=== PATIENT | male | born 1960 | race Caucasian/White ===

== ENCOUNTER → 2023-07-16 | Emergency (ER) | payer OTHER ==
[~2023-07-16] MED LIST: ASPIRIN 81 MG CHEWABLE TABLET ONE; AZITHROMYCIN 500 MG INJ IVPB ONE; CEFTRIAXONE 2000 MG/VIAL ONE; FAMOTIDINE 20 MG/2 ML VIAL IV ONE; FUROSEMIDE 40 MG/4 ML VIAL ONE; IPRATROPIUM BROM 0.5MG/2.5ML ONE; LEVALBUTEROL 1.25 MG/3 ML NEB ONE; NA CHLORIDE 0.9% 250 ML ONE; NIRMATRELVIR/RITONAVIR TABLET PO ONE; ONDANSETRON 4 MG/2 ML VIAL ONE
[2023-07-16 14:17] LABS: Absolute Lymphocytes (CBC) 1.1 K/uL (0.7-4.9); Hematocrit 39.5 % (39.6-49.0); Lymphocytes % 8.2 % (15.3-44.8); MPV 7.3 fL (7.6-11.3); Platelets 268 thou/uL (152-406); RBC Red Blood Cell Count 4.94 M/uL (4.33-5.43)
[2023-07-16 14:32] LABS: SARS-CoV-2 Antigen Rapid Res Positive (Negative)
[2023-07-16 14:39] LABS: Bilirubin Direct 0.3 mg/dL (0-0.2); Bilirubin Indirect, Calculated 0.6 mg/dL (0.2-0.8); Bilirubin Total 0.9 mg/dL (0.2-1.0); Magnesium 1.8 mg/dL (1.6-2.4); Potassium 3.2 mEq/L (3.5-5.1); Protein, Total 7.2 g/dL (6.4-8.2); Protime INR 1.4; Troponin High Sensitivity 46.5 pg/mL (<58.9)
--- NOTE | 2023-07-16 14:56 | EKG ---
Test Date: 2023-07-16 Test Time: 13:50:50 Cereal Maker: ALP MEASUREMENT RESULTS: Intervals: Rate: 86 TN: 174 QRSD: 92 QT: 386 QTc: 461 [place]: P: 54 TN: 174 QRS: 101 T: -5 INTERPRETIVE STATEMENTS: Normal sinus rhythm Possible Left atrial enlargement Rightward axis Inferior infarct, age undetermined ST & T wave abnormality, consider anterior ischemia Abnormal ECG No previous ECG available for comparison Electronically Signed On 07-16-23 14:56:16 TRAVEL ADMINISTRATOR by Steve Tinoco
--- NOTE | 2023-07-16 15:03 | EDPHYS ---
Physician Documentation [facility] Name: William Sneed Age: 63 yrs Sex: Male : 1960 Arrival Date: 07/16/2023 Time: 13:25 Bed 13 Private MD: ED Physician Dong Pfeiffer HPI: 07/16 14:56 This 63 yrs old Male presents to ER via Wheelchair with complaints of bel Breathing Difficulty. 14:56 The patient has shortness of breath at rest, with light activity. Onset: The bel symptoms/episode began/occurred 3 day(s) ago. Duration: The symptoms are continuous, and are steadily getting worse. The patient's shortness of breath is aggravated by coughing, is alleviated by rest, sitting up, application of supplemental oxygen. Associated signs and symptoms: Pertinent positives: non-productive cough. Severity of symptoms: At their worst the symptoms were in the emergency department the symptoms have improved moderately. The patient has experienced similar episodes in the past, multiple times. Historical: - Allergies: 13:35 Levaquin; ko1 - Home Meds: 13:35 Unable to obtain [Active]; ko1 - PMHx: 13:35 Diabetes mellitus; Hypertensive disorder; pulmonary fibrosis; ko1 - Immunization history:: Adult Immunizations up to date. - Social history:: Smoking status: Patient denies any tobacco usage or history of. ROS: 14:58 Constitutional: Negative for fever, chills, and weight loss, Eyes: Negative for injury, bel pain, redness, and discharge, ENT: Negative for injury, pain, and discharge, Neck: Negative for injury, pain, and swelling, Cardiovascular: Negative for chest pain, palpitations, and edema, Abdomen/GI: Negative for abdominal pain, nausea, vomiting, diarrhea, and constipation, Back: Negative for injury and pain, : Negative for injury, bleeding, discharge, and swelling, MS/Extremity: Negative for injury and deformity, Skin: Negative for injury, rash, and discoloration, Neuro: Negative for headache, weakness, numbness, tingling, and seizure, Psych: Negative for depression, anxiety, suicide ideation, homicidal ideation, and hallucinations, Allergy/Immunology: Negative for hives, rash, and allergies, Endocrine: Negative for neck swelling, polydipsia, polyuria, polyphagia, and marked weight changes, Hematologic/Lymphatic: Negative for swollen nodes, abnormal bleeding, and unusual bruising, 14:58 Respiratory: Positive for cough, "sounds productive", dyspnea on exertion, orthopnea, shortness of breath, at rest. 14:58 MS/extremity: Negative for acute changes, Exam: 14:58 Constitutional: This is a well developed, well nourished patient who is awake, alert, bel and in no acute distress. Head/Face: Normocephalic, atraumatic. Eyes: Pupils equal round and reactive to light, extra-ocular motions intact. Lids and lashes normal. Conjunctiva and sclera are non-icteric and not injected. Cornea within normal limits. Periorbital areas with no swelling, redness, or edema. ENT: Nares patent. No nasal discharge, no septal abnormalities noted. Tympanic membranes are normal and external auditory canals are clear. Oropharynx with no redness, swelling, or masses, exudates, or evidence of obstruction, uvula midline. Mucous membranes moist. Neck: Trachea midline, no thyromegaly or masses palpated, and no cervical lymphadenopathy. Supple, full range of motion without nuchal rigidity, or vertebral point tenderness. No Meningismus. Chest/axilla: Normal chest wall appearance and motion. Nontender with no deformity. No lesions are appreciated. Cardiovascular: Regular rate and rhythm with a normal S1 and S2. No gallops, murmurs, or rubs. Normal PMI, no JVD. No pulse deficits. Abdomen/GI: Soft, non-tender, with normal bowel sounds. No distension or tympany. No guarding or rebound. No evidence of tenderness throughout. Back: No spinal tenderness. No costovertebral tenderness. Full range of motion. Male : Normal genitalia with no discharge or lesions. Skin: Warm, dry with normal turgor. Normal color with no rashes, no lesions, and no evidence of cellulitis. MS/ Extremity: Pulses equal, no cyanosis. Neurovascular intact. Full, normal range of motion. Neuro: Awake and alert, GCS 15, oriented to person, place, time, and situation. Cranial nerves II-XII grossly intact. Motor strength 5/5 in all extremities. Sensory grossly intact. Cerebellar exam normal. Normal gait. Psych: Awake, alert, with orientation to person, place and time. Behavior, mood, and affect are within normal limits. 14:58 ECG was reviewed by the Attending Physician. 14:58 Respiratory: mild respiratory distress is noted, Respirations: labored breathing, that is mild, Breath sounds: bronchial sounds, that are mild, are scattered, decreased breath sounds, that are mild, are located in both bases, rhonchi, that are mild, are scattered, Respiratory rate: 18 14:58 Musculoskeletal/extremity: DVT Exam: No signs of deep vein thrombosis. no pain, no swelling, no tenderness, negative Homans' sign noted on exam, no appreciated bluish discoloration, no erythema, no increased warmth, Vital Signs: 13:33 BP 126 / 72; Pulse 92; Resp 18; Temp 97.8; Pulse Ox 88% on 4 lpm NC; ko1 15:30 BP 170 / 99; Pulse 94; Resp 26; Pulse Ox 97% on Non-rebreather mask; ap3 15:52 BP 145 / 92; Pulse 91; Resp 18; Pulse Ox 93% on 4 lpm NC; ap3 16:31 BP 153 / 76; Pulse 100; Resp 96; Pulse Ox 96% on 4 lpm NC; ap3 17:56 BP 129 / 78; Pulse 96; Resp 21 S; Pulse Ox 94% on 4 lpm NC; as6 MDM: 13:34 Patient medically screened. bel 15:00 Differential diagnosis: Anemia Anxiety Reaction asthma, Bronchitis CHF exacerbation, bel Chronic Obstructive Pulmonary Disease pulmonary edema, Pulmonary Embolism reactive airway disease, Sepsis Unstable Angina. Antibiotic administration: Rocephin and Zithromax given. Differential Diagnosis sepsis, flu. Immunization status: Influenza vaccine: within last 5 years. Data reviewed: vital signs, nurses notes, lab test result(s), EKG, radiologic studies, CT scan, plain films. Consideration of Admission/Observation Patient was admitted/placed on observation. Escalation of care including admission/observation considered. I considered the following discharge prescriptions or medication management in the emergency department Medications were administered in the Emergency Department. See MAR. Independent interpretation of the following test(s) in the Emergency Department EKG: See my EKG interpretation above. Historians other than the Patient: Spouse/Significant Other: well informed. Care significantly affected by the following chronic conditions: Diabetes, Hypertension, pulmonary fibrosis. Counseling: I had a detailed discussion with the patient and/or guardian regarding the historical points, exam findings, and any diagnostic results supporting the discharge/admit diagnosis, lab results, radiology results, the need to transfer to another facility, for higher level of care, [facility] does not immediately have the required specialist. 07/16 13:37 Order name: Basic Metabolic Panel; Complete Time: 14:46 07/16 13:37 Order name: CBC with Diff; Complete Time: 14:47 07/16 13:37 Order name: LFT's; Complete Time: 14:47 07/16 13:37 Order name: Magnesium; Complete Time: 14:47 07/16 13:37 Order name: NT PRO-BNP; Complete Time: 14:47 07/16 13:37 Order name: PT-INR; Complete Time: 14:47 07/16 13:37 Order name: Troponin HS; Complete Time: 14:47 07/16 13:37 Order name: Lipase; Complete Time: 14:47 07/16 13:37 Order name: Urinalysis w/ reflexes; Complete Time: 15:41 07/16 13:37 Order name: ABG; Complete Time: 15:03 07/16 13:37 Order name: SARS RAPID; Complete Time: 14:47 07/16 13:37 Order name: Flu; Complete Time: 14:47 07/16 13:37 Order name: Blood Culture Adult (2) 07/16 13:37 Order name: Lactate w/ 2H reflex if indic.; Complete Time: 14:47 07/16 13:37 Order name: XRAY Chest (1 view) 07/16 14:52 Order name: CT Chest For PE Angio 07/16 13:37 Order name: EKG; Complete Time: 13:38 07/16 13:37 Order name: Cardiac monitoring; Complete Time: 14:09 07/16 13:37 Order name: EKG - Nurse/Tech; Complete Time: 13:55 07/16 13:37 Order name: IV Saline Lock; Complete Time: 14:09 07/16 13:37 Order name: Labs collected and sent; Complete Time: 14:09 07/16 13:37 Order name: O2 Per Protocol; Complete Time: 13:55 07/16 13:37 Order name: O2 Sat Monitoring; Complete Time: 13:55 bel EC:58 Rate is 86 beats/min. Rhythm is regular. QRS [place] is Normal. [place] interval is normal. QRS bel interval is normal. QT interval is normal. No Q waves. T waves are Normal. No ST changes noted. Clinical impression: NSR w/ Non-specific ST/T Changes and No evidence of ischemia. Interpreted by me. Reviewed by me. Administered Medications: 14:16 Drug: NS 0.9% IV 1000 ml IV at 125 ml/hr continuous Route: IV; Rate: 125 ml/hr; Site: cp4 right antecubital; 17:52 Follow up: Response: No adverse reaction; IV Status: Infusion continued upon transfer; as6 IV Intake: 500ml 14:50 Drug: Famotidine IVP 40 mg IVP once; dilute with 10 mL 0.9% NaCl; give over 2 minutes cp4 Route: IVP; Site: right antecubital; 17:53 Follow up: Response: No adverse reaction as6 14:50 Drug: Aspirin PO Chewable Tablet 81 mg PO once Route: PO; cp4 17:53 Follow up: Response: No adverse reaction as6 15:04 Drug: Furosemide IVP 40 mg IVP once; give over 2 minutes Route: IVP; Site: right cp4 antecubital; 17:54 Follow up: Response: No adverse reaction as6 15:05 Drug: Rocephin IV 2 grams IV at per protocol once; Given slow IV push per pharmarcy cp4 instructions Route: IV; Rate: per protocol; Site: right antecubital; 17:53 Follow up: Response: No adverse reaction; IV Status: Completed infusion; IV Intake: 02haop3 15:05 Drug: Zithromax IVPB 500 mg IVPB once over 1 hrs; mix in 250 mL NS Route: IVPB; Infused cp4 Over: 1 hrs; Site: right antecubital; 17:54 Follow up: Response: No adverse reaction; IV Status: Completed infusion; IV Intake: as6 250ml 15:32 Drug: Paxlovid Dose Pack 300 mg (150 mg x 2)-100 mg 3 tabs PO once Route: PO; cp4 17:53 Follow up: Response: No adverse reaction as6 15:54 Drug: Levalbuterol Inhalation 2.5 mg Inhalation once Route: Inhalation; cp4 17:54 Follow up: Response: No adverse reaction as6 15:54 Drug: Ipratropium Inhalation Aerosol 0.5 mg Inhalation once Route: Inhalation; cp4 17:54 Follow up: Response: No adverse reaction as6 15:55 Drug: Ondansetron IVP 4 mg IVP once; over 2 minutes Route: IVP; Site: right antecubital;cp4 17:54 Follow up: Response: No adverse reaction as6 Disposition Summary: 07/16/23 15:03 Transfer Ordered Notes: Transfer Location: [facility] bel Reason: Higher level of care bel Condition: Fair bel Problem: new bel Symptoms: have improved bel Accepting Physician: to [facility](07/16/23 17:56) as6 Diagnosis - Dyspnea bel - Hypoxemia bel - Idiopathic pulmonary fibrosis - advanced bel - Pneumonia due to SARS-associated coronavirus bel - Elevated white blood cell count bel - Hypokalemia bel Forms: - Medication Reconciliation Form bel - SBAR form bel Signatures: Dispatcher [employer] EDDong Titus MD MD cha Prokisch, Amanda, RN RN ap3 Fran Kat RN RN as6 Deyanira Andersen RN RN ko1 Shona Gautam cp4 Corrections: (The following items were deleted from the chart) 13:38 13:35 PSHx: pulmonary fibrosis; ko1 ko1 15:04 15:03 to [facility] bel bel 17:56 15:04 to [facility] bel as6
--- NOTE | 2023-07-16 15:03 | ER ---
Nurse's Notes [facility] Name: William Sneed Age: 63 yrs Sex: Male : 1960 Arrival Date: 07/16/2023 Time: 13:25 Bed 13 Private MD: Diagnosis: Dyspnea;Hypoxemia;Idiopathic pulmonary fibrosis-advanced;Pneumonia due to SARS-associated coronavirus;Elevated white blood cell count;Hypokalemia Presentation: 07/16 13:33 Chief complaint: Patient states: short of breath since Sunday, went to [place] [facility], no ko1 treatment given. Doing testing for lung transplant. Coronavirus screen: At this time, the client does not indicate any symptoms associated with coronavirus-19. Ebola Screen: No symptoms or risks identified at this time. Initial Sepsis Screen: Does the patient meet any 2 criteria? No. Patient's initial sepsis screen is negative. Does the patient have a suspected source of infection? No. Patient's initial sepsis screen is negative. Risk Assessment: Do you want to hurt yourself or someone else? Patient reports no desire to harm self or others. Onset of symptoms is unknown. 13:33 Method Of Arrival: Wheelchair ko1 13:33 Acuity: COLT 3 ko1 Triage Assessment: 13:35 General: Appears in no apparent distress. ill, Behavior is calm, cooperative, ko1 appropriate for age. Pain: Complains of pain in abdomen. Respiratory: Reports shortness of breath at rest Onset: The symptoms/episode began/occurred since sunday, the patient has severe shortness of breath. Historical: - Allergies: 13:35 Levaquin; ko1 - Home Meds: 13:35 Unable to obtain [Active]; ko1 - PMHx: 13:35 Diabetes mellitus; Hypertensive disorder; pulmonary fibrosis; ko1 - Immunization history:: Adult Immunizations up to date. - Social history:: Smoking status: Patient denies any tobacco usage or history of. Screenin:51 [facility] ED Fall Risk Assessment (Adult) Score/Fall Risk Level 0 - 2 = Low Risk. Abuse as6 screen: Denies threats or abuse. Denies injuries from another. Nutritional screening: No deficits noted. Tuberculosis screening: No symptoms or risk factors identified. Assessment: 15:28 General: this nurse went into the room due to desaturation alarm going off. patient was ap3 found to have an SPO2 of 77% on 4liters via nasal canula. this nurse placed the patient on a non-rebreather O2 mask and the patient recovered to 97% SPO2. Provider notified. . 15:51 General: this nurse placed patient back on 4liters via nasal canula due to patient ap3 having 100% SPO2 on non-rebreather. Patient informed this nurse he was nauseated. MD notified, VO received for 4mg Zofran IV X's 1. . Vital Signs: 13:33 BP 126 / 72; Pulse 92; Resp 18; Temp 97.8; Pulse Ox 88% on 4 lpm NC; ko1 15:30 BP 170 / 99; Pulse 94; Resp 26; Pulse Ox 97% on Non-rebreather mask; ap3 15:52 BP 145 / 92; Pulse 91; Resp 18; Pulse Ox 93% on 4 lpm NC; ap3 16:31 BP 153 / 76; Pulse 100; Resp 96; Pulse Ox 96% on 4 lpm NC; ap3 17:56 BP 129 / 78; Pulse 96; Resp 21 S; Pulse Ox 94% on 4 lpm NC; as6 ED Course: 13:26 Patient arrived in ED. rg4 13:34 Dong Pfeiffer MD is Attending Physician. bel 13:35 Triage completed. ko1 13:35 Arm band placed on right wrist. Patient placed in an exam room, on a stretcher, on ko1 oxygen, on satellite project site monitor, on pulse oximetry, Patient notified of wait time. 13:54 EKG done, by ED staff, reviewed by Dong Pfeiffer MD. ap3 14:02 XRAY Chest (1 view) In Process Unspecified. EDMS 14:08 Shona Gautam is Primary Nurse. cp4 14:09 Blood Culture Adult (2) Sent. cp4 14:09 Lactate w/ 2H reflex if indic. Sent. cp4 15:20 CT Chest For PE Angio In Process Unspecified. EDMS 17:52 Bed in low position. Call light in reach. Side rails up X 1. Provided Education on: as6 need for transfer . 17:52 No provider procedures requiring assistance completed. Patient transferred, IV remains as6 in place. Administered Medications: 14:16 Drug: NS 0.9% IV 1000 ml IV at 125 ml/hr continuous Route: IV; Rate: 125 ml/hr; Site: cp4 right antecubital; 17:52 Follow up: Response: No adverse reaction; IV Status: Infusion continued upon transfer; as6 IV Intake: 500ml 14:50 Drug: Famotidine IVP 40 mg IVP once; dilute with 10 mL 0.9% NaCl; give over 2 minutes cp4 Route: IVP; Site: right antecubital; 17:53 Follow up: Response: No adverse reaction as6 14:50 Drug: Aspirin PO Chewable Tablet 81 mg PO once Route: PO; cp4 17:53 Follow up: Response: No adverse reaction as6 15:04 Drug: Furosemide IVP 40 mg IVP once; give over 2 minutes Route: IVP; Site: right cp4 antecubital; 17:54 Follow up: Response: No adverse reaction as6 15:05 Drug: Rocephin IV 2 grams IV at per protocol once; Given slow IV push per pharmarcy cp4 instructions Route: IV; Rate: per protocol; Site: right antecubital; 17:53 Follow up: Response: No adverse reaction; IV Status: Completed infusion; IV Intake: [id number] 15:05 Drug: Zithromax IVPB 500 mg IVPB once over 1 hrs; mix in 250 mL NS Route: IVPB; Infused cp4 Over: 1 hrs; Site: right antecubital; 17:54 Follow up: Response: No adverse reaction; IV Status: Completed infusion; IV Intake: as6 250ml 15:32 Drug: Paxlovid Dose Pack 300 mg (150 mg x 2)-100 mg 3 tabs PO once Route: PO; cp4 17:53 Follow up: Response: No adverse reaction as6 15:54 Drug: Levalbuterol Inhalation 2.5 mg Inhalation once Route: Inhalation; cp4 17:54 Follow up: Response: No adverse reaction as6 15:54 Drug: Ipratropium Inhalation Aerosol 0.5 mg Inhalation once Route: Inhalation; cp4 17:54 Follow up: Response: No adverse reaction as6 15:55 Drug: Ondansetron IVP 4 mg IVP once; over 2 minutes Route: IVP; Site: right antecubital;cp4 17:54 Follow up: Response: No adverse reaction as6 Medication: 17:51 VIS not applicable for this client. as6 Intake: 17:52 IV: 500ml; Total: 500ml. as6 17:53 IV: 10ml; Total: 510ml. as6 17:54 IV: 250ml; Total: 760ml. as6 Outcome: 15:03 ER care complete, transfer ordered by . bel 17:51 Transferred by ground EMS Transfer form completed. X-rays sent w/ patient. as6 17:51 Condition: stable 17:51 Instructed on the need for transfer, 17:56 Patient left the ED. as6 Signatures: Dispatcher [employer] EDMS Dong Pfeiffer MD MD cha Garcia, Rubi rg4 Audrey Mcdermott RN RN ap3 Fran Kat RN RN as6 Deyanira Andersen RN RN ko1 Shona Gautam cp4 Corrections: (The following items were deleted from the chart) 13:38 13:35 PSHx: pulmonary fibrosis; ko1 ko1
[2023-07-16 15:37] LABS: Specific Gravity 1.015 (1.005-1.030); Urine Bilirubin NEGATIVE (Negative); Urine Blood Negative (Negative); Urine Clarity Clear (Clear); Urine Color Light-Yellow (Yellow); Urine Glucose NEGATIVE (Negative); Urine Protein NEGATIVE (Negative); Urine Urobilinogen Normal (Normal)
--- NOTE | 2023-07-16 16:05 | RAD REPORT ---
EXAM DESCRIPTION: CT - Chest For Pe Angio - 07/16/2023 3:19 pm CLINICAL HISTORY: DYSPNEA COMPARISON: Chest Single View dated 07/16/2023 TECHNIQUE: Thin axial CT images of the chest were obtained following administration of 100 mL Isovue 370 IV contrast. Multiplanar reconstructions, and maximum intensity projection reconstructions were generated and reviewed. Exam utilizes a protocol for optimal evaluation of pulmonary arterial tree. All CT scans are performed using dose optimization technique as appropriate and may include automated exposure control or mA/KV adjustment according to patient size. FINDINGS: Pulmonary arteries are normal. No emboli or other suspicious finding. No acute or signific ant aorta findings. Peripheral predominant interstitial thickening with moderate pattern of honeycombing. Findings show n o apical or basal predominance. No mass or focal consolidation infiltrate in the lung parenchyma. No pleural thickening or pleural effusion. No pneumothorax. Bulky adenopathy. The largest mediastinal node is in the right paratracheal zone measuring 4.7 x 3.3 cm. The largest left hilar node measures 3.3 x 2.4 cm. The largest right hilar node measures 1.9 cm. Some of the nodes demonstrate central coarse calcifications. . No chest wall mass or abnormal axillia ry lymphadenopathy. Incidentally noted right adrenal 2.5 cm nodule. Punctate calcifications throughout the liver and the spleen, nonspecific, but may represent sequelae of prior granulomatous infection. IMPRESSION: No evidence of acute central pulmonary emboli. Bulky mediastinal and hilar adenopathy, suggestive of sarcoidosis. UIP pattern of interstitial lung disease, can be seen in the setting of late stage sarcoidosis as wel l. Indeterminate right adrenal 2.5 cm nodule, may represent an adenoma, although this is not well charac terized on CT.
--- NOTE | 2023-07-16 16:41 | RAD REPORT ---
EXAM DESCRIPTION: RADChest Single View07/16/2023 2:01 pm CLINICAL HISTORY: DYSPNEA COMPARISON: Chest For Pe Angio dated 07/16/2023 TECHNIQUE: Portable AP view of the chest. FINDINGS: Bilateral central and basilar predominant fluffy opacities, likely relates to volume loss and interstitial changes as demonstrated on the subsequent CT. No pneumothorax or effusion. The card iomediastinal contours are unremarkable. IMPRESSION: Bilateral lung fibrotic changes as demonstrated on subsequent CT with volume loss. No ot her acute cardiopulmonary process.
[2023-07-17 03:38] VITALS: TEMP 97.8
[2023-07-17 03:55] VITALS: BP 129/78; O2SAT 94
== END ==
LOC: ER 13:25 → SUPCPDRO 13:25
DX: U07.1 COVID-19 (principal); J12.82 Pneumonia due to coronavirus disease 2019; R09.02 Hypoxemia; J84.112 Idiopathic pulmonary fibrosis; E87.6 Hypokalemia; D72.829 Elevated white blood cell count, unspecified; E11.9 Type 2 diabetes mellitus without complications; I10 Essential (primary) hypertension; Z88.1 Allergy status to other antibiotic agents
CPT/HCPCS: 93005; 87040 ×2; 85025; 80048; 36415; 83735; 85610; 80076; 83605; 81003; 84484; 83690; 83880; 87804 ×2; 71275; 71045; 82805; 87811; 36600; Q9967; J8499; J7614; J1940; J7644; J2405; J0696; J7050